=== PATIENT | male | born 1985 ===

== ENCOUNTER 2024-11-12 20:45 | Emergency (ER) | payer OTHER, SELFPAY ==
--- NOTE | ~2024-11-12 | US_ITS ---
TESTICULAR ULTRASOUND (Doppler ultrasound interrogation techniques used as needed for this exam.) Ordering provider: Nika Song MD History: . R testicular pain, r/o torsion . Comparison: None. FINDINGS: TESTICLES: Normal in size. The right measures 2.9x 2.1x 3.6 cm and the left measures 2.7x 2.4 x 3.2 C m. Normal echogenicity bilaterally without mass lesion. Normal Doppler flow bilaterally. EPIDIDYMIDES: Normal in size. Normal echogenicity bilaterally. Both demonstrate normal Doppler flow. HYDROCELE: None. VARICOCELE: None. OTHER ABNORMALITY: None seen. IMPRESSION: normal testicular ultrasound. Reviewed, dictated and finalized at location A.
--- NOTE | ~2024-11-12 | CT_ITS ---
CLINICAL INDICATION: Right lower quadrant pain COMPARISON: None. TECHNIQUE: Multiple contiguous axial images of the abdomen and pelvis were performed following the ad ministration of with 100 mL Omnipaque-350 intravenous contrast The dose-length product (DLP) was 686.55 mGy-cm. Automated exposure control and iterative reconstruction technique were employed. FINDINGS/OBSERVATIONS: Visualized lower thorax: The bilateral lung bases are clear. The heart is of normal size, without pericardial effusion. Liver: The liver demonstrates homogeneous enhancement and is not enlarged. Gallbladder and biliary system: The gallbladder is only minimally distended, and otherwise unremarkable. Pancreas: The pancreas enhances homogeneously without ductal dilatation. Spleen: The spleen enhances homogeneously and is not enlarged measuring 8 cm in longitudinal dimension. Kidneys: The bilateral kidneys enhance symmetrically without hydronephrosis or renal calculi. Adrenal glands: Unremarkable. Gastrointestinal tract: Mural thickening and edema is identified within the transverse colon, with surrounding inflammatory c hange, findings suggesting a focal enteritis for which clinical correlation is needed. Appendix: The air-filled appendix is of normal caliber (axial series, images 107 through 139). Vasculature: Unremarkable. Lymph nodes: No pathologically enlarged or morphologically suspicious lymph nodes within the retroperitoneum or at the root of the mesentery. Pelvic structures: The bladder is decompressed, limiting its evaluation. The prostate gland is not enlarged. Body wall and musculoskeletal: No significant degenerative disease within the lower thoracic or lumbosacral spine. IMPRESSION: Findings within the transverse colon suggesting a diffuse enteritis. Normal appendix. Reviewed, dictated and finalized at location A.
[2024-11-12 20:52] VITALS: BP 133/82; PULSE 65; RESP 19; TEMP 36.6; O2SAT 99
[2024-11-12 21:31] VITALS: PULSE 64; RESP 16; O2SAT 100
[2024-11-12 21:34] VITALS: BP 135/86; PULSE 64; RESP 15; O2SAT 99
[2024-11-12 21:36] LABS: Basophils Absolute Auto 0.1 K/mm3 (0.0-0.1); Basophils Percent Auto 0.4 % (0.2-1.2); Eosinophils Absolute Auto 0.1 K/mm3 (0-0.3); Eosinophils Percent Auto 0.6 % (0-4.4); Hematocrit 44.8 % (42.0-52.0); Hemoglobin 15.2 g/dL (14.0-18.0); Immature Granulocyte Absolute 0.08 K/mm3 (0.00-0.031); Immature Granulocyte Percent A 0.5 % (0-0.5); Lymphocytes Percent Auto 14.5 % (18.3-44.2); Mean Corpuscular HGB Conc 33.9 g/dl (32-36); Mean Corpuscular Hemoglobin 28.3 pg (26-34); Mean Corpuscular Volume 83.4 fl (80-100); Monocytes Percent Auto 6.3 % (2.6-8.5); Neutrophils Absolute Auto 12.3 K/mm3 (1.3-6.7); Neutrophils Percent Auto 77.7 % (45.5-73.1); Platelet Count Result 326 k/mm3 (150-375); Red Blood Count 5.37 M/mm3 (4.6-6.20); Red Cell Distribution Width 12.5 % (11.5-14.5); White Blood Count 15.9 K/mm3 (4.5-10.0)
[2024-11-12 21:45] VITALS: PULSE 69; RESP 19
[2024-11-12 21:46] LABS: Alanine Aminotransferase 63 U/L (6-50); Albumin Level 4.7 g/dL (3.5-5.1); Alkaline Phosphatase 81 U/L (38-126); Anion Gap 11 mmol/L (4-12); Aspartate Amino Transferase 46 U/L (17-59); Bilirubin,Total 0.6 mg/dL (0.2-1.3); Blood Urea Nitrogen 20 mg/dL (9-20); Calcium 9.3 mg/dL (8.4-10.2); Carbon Dioxide 23 mmol/L (22-30); Chloride 105 mmol/L (98-107); Estimated CRCL calculation 93 ml/min; Estimated Glomerular Filt Rate > 60; Glucose 134 mg/dL (65-110); Lipase 69 U/L (23-300); Potassium 4.1 mmol/L (3.4-5.0); Sodium 139 mmol/L (137-145)
[2024-11-12] MEDS: MORPHINE SULFATE (*CRX) 4 MG/ML INJ IV PUSH (22:23)
[2024-11-12] MEDS: ONDANSETRON INJ 4 MG/2 ML VIAL IV PUSH (22:24)
--- NOTE | 2024-11-12 22:25 | ED.ABDPAIN ---
HPI - Abdominal Pain General Chief Complaint: Abdominal Pain Stated Complaint: abd pain Time Seen by Provider: 11/12/24 21:24 History of Present Illness HPI narrative: Patient presenting with right lower quadrant pain, with nausea vomiting, comes in waves, has never happened in the past, with nausea vomiting. First started about 2-3 hours ago but has been increasing pain. Related Data Allergies Allergy/AdvReac Type Severity Reaction Status Date / Time fish derived Allergy SWELLING Verified 11/12/24 20:55 OF THE THROAT Review of Systems Review of Systems: All systems reviewed & are unremarkable except as noted in HPI and below [facility] Family History Family History (Updated 01/24/16 @ 23:19 by DOCTOR UNKNOWN) Father Family history of diabetes mellitus in first degree relative Social History Social History Alcohol intake: current Exam Narrative: EXAMINATION OF ORGAN SYSTEMS/BODY AREAS: Constitutional: Vital signs per nursing GENERAL: Appears incredibly uncomfortable, bent over, dry heaving, moaning in pain HEAD: Normal with no signs of head trauma. EYES: EOMI, conjunctiva normal ENT: Hearing grossly intact LUNGS: Nonlabored breathing. HEART: [Regular rate and rhythm] ABD: [Soft], [nontender to palpation], no significant right lower quadrant tenderness : Cremaster reflex intact, no significant tenderness to the right testicle though it is slightly high EXT: Normal range of motion SKIN: [No rashes or lesions.] NEURO: [Alert and oriented x 3. No gross focal sensory or strength deficits.] PSYCH: Normal affect Course Vital Signs Vital signs: Vital Signs Temperature 97.8 F 11/12/24 20:52 Pulse Rate 65 11/12/24 20:52 Respiratory Rate 19 11/12/24 20:52 Blood Pressure 133/82 11/12/24 20:52 Pulse Oximetry 99 11/12/24 20:52 Oxygen Delivery Room Air 11/12/24 20:52 Temperature 98.7 F 11/13/24 01:23 Pulse Rate 71 11/13/24 01:23 Respiratory Rate 18 11/13/24 01:23 Blood Pressure 134/87 11/13/24 01:23 Pulse Oximetry 97 11/13/24 01:23 Oxygen Delivery Room Air 11/12/24 20:52 MDM - Abdominal Pain MDM Narrative Medical decision making narrative: ED COURSE AND MEDICAL DECISION MAKIN-year-old male presenting to the emergency department for acute flank pain, symptoms are concerning for likely renal colic versus pyelonephritis. I did also testicular torsion and appendicitis. Urinalysis is ordered. [Morphine 4 mg, Zofran 4mg] are ordered. CT scan of the abdomen/pelvis is ordered. Labs are remarkable for: Blood in urine. CT scan of the abdomen/pelvis is independently interpreted by myself showing for 4 mm stone at UVJ on the right with hydroureter/hydronephrosis, no obvious signs of acute appendicitis. Testicular ultrasound on my independent interpretation shows good flow to bilateral testicles On re-evaluation patient is still having severe pain, I did give 15 mg Toradol On reevaluation, the patient states that pain is resolved, he appears more comfortable. Patient is strongly advised to return to the emergency department for any increasing pain not improving with medications, persistent nausea vomiting, fevers or chills or for any other concerns. Patient is comfortable with this plan and was discharged in fair condition. Follow-up to urologist provided. Lab Data 11/12/24 21:26 11/12/24 21:26 Labs: Lab Results 11/12/24 11/12/24 Range/Units 21:26 22:27 WBC 15.9 H (4.5-10.0) K/mm3 RBC 5.37 (4.6-6.20) M/mm3 Hgb 15.2 (14.0-18.0) g/dL Hct 44.8 (42.0-52.0) % MCV 83.4 (80-100) fl MCH 28.3 (26-34) pg MCHC 33.9 (32-36) g/dl RDW 12.5 (11.5-14.5) % Plt Count 326 (150-375) k/mm3 MPV 10.0 (7.4-10.4) fl Immature Gran % (Auto) 0.5 (0-0.5) % Neut % (Auto) 77.7 H (45.5-73.1) % Lymph % (Auto) 14.5 L (18.3-44.2) % Evans % (Auto) 6.3 (2.6-8.5) % Eos % (Auto) 0.6 (0-4.4) % Baso % (Auto) 0.4 (0.2-1.2) % Lymph # (Auto) 2.30 (0.9-3.2) K/mm3 Evans # (Auto) 1.0 H (0.1-0.6) K/mm3 Eos # (Auto) 0.1 (0-0.3) K/mm3 Baso # (Auto) 0.1 (0.0-0.1) K/mm3 Abs Immat Gran (auto) 0.08 H (0.00-0.031) K/mm3 Absolute Neuts (auto) 12.3 H (1.3-6.7) K/mm3 Absolute Nucleated RBC 0.000 (0.0-0.012) K/mm3 Nucleated RBC % 0.0 (0.0-0.2) % Sodium 139 (137-145) mmol/L Potassium 4.1 (3.4-5.0) mmol/L Chloride 105 (98-107) mmol/L Carbon Dioxide 23 (22-30) mmol/L Anion Gap 11 (4-12) mmol/L BUN 20 (9-20) mg/dL Creatinine 1.05 (0.7-1.3) mg/dL Estim Creat Clear Calc 93 ml/min Estimated GFR > 60 (59 - ) Glucose 134 H (65-110) mg/dL Calcium 9.3 (8.4-10.2) mg/dL Total Bilirubin 0.6 (0.2-1.3) mg/dL AST 46 (17-59) U/L ALT 63 H (6-50) U/L Alkaline Phosphatase 81 (38-126) U/L Total Protein 8.0 (6.3-8.2) g/dL Albumin 4.7 (3.5-5.1) g/dL Lipase 69 (23-300) U/L Urine Color Yellow (Yellow) Urine Appearance Clear (Clear) Urine pH 5.5 (5.0-9.0) Ur Specific [place] 1.025 (1.001-1.035) Urine Protein Negative (Negative) mg/dL Urine Glucose (UA) Negative (Negative) mg/dL Urine Ketones Trace H (Negative) mg/dL Ur Blood (Man) 2+ H (Negative) Urine Nitrate Negative (Negative) Urine Bilirubin Negative (Negative) Urine Urobilinogen 0.2 (<2.0) mg/dL Leukocyte Esterase Rfl Negative (Negative) REBECA/UL Urine RBC 21-50 H (0-2) /hpf Urine WBC 0-5 (0-3) /hpf Ur Squamous Epith Cells None seen (Few) /hpf Urine Bacteria None seen /hpf Urine Casts 0-2 Imaging Data Radiologist's impression: ITS Impressions Abdomen/Pelvis CT 11/12/24 22:46 IMPRESSION: Findings within the transverse colon suggesting a diffuse enteritis. Normal appendix. Discharge Plan Discharge Clinical Impression: Kidney stone Patient Disposition: Home Condition: Stable Instructions: Kidney Stones (ED) Additional Instructions: Take the medications as prescribed, if your pain returns or worsens, come back to the hospital. Follow-up with a urologist make sure to keep hydrated. Patient Language: Luxembourgish Prescriptions: New ketorolac 10 mg tablet 10 mg PO Q6H PRN (Reason: pain) Qty: 20 0RF Rx Instructions: maximum total duration of 5 days from all oral, intranasal, or parenteral formulations ondansetron 4 mg tablet,disintegrating 4 mg PO Q8H PRN (Reason: nausea and vomiting) Qty: 20 0RF tamsulosin [Flomax] 0.4 mg capsule 0.4 mg PO DAILY Qty: 14 0RF Follow-up/Referrals: Nicolas Bowers MD [Physician] - 2 Days Liam Smith MD [Primary Care Provider] -
[2024-11-12 22:43] LABS: Add Urine Microscopic? YES; Appearance Urine Clear (Clear); Bacteria Urine None Seen /hpf; Bilirubin Urine Negative (Negative); Blood Urine 2+ (Negative); Color Urine Yellow (Yellow); Glucose Urine UA Negative (Negative); Ketones Urine Trace mg/dL (Negative); Leukocyte Esterase Ur Negative LEU/UL (Negative); Nitrate Urine Negative (Negative); Non Pathogenic Casts 0-2; Protein Urine Negative (Negative); RBC Urine 21-50 /hpf (0-2); Specific Grav Ur 1.025 (1.001-1.035); Squamous Epithelial Cell Urine None Seen /hpf (Few); Urobilinogen Urine 0.2 mg/dL (<2.0); WBC Urine 0-5 /hpf (0-3); pH Urine 5.5 (5.0-9.0)
--- NOTE | 2024-11-12 23:45 | PC.NURSE ---
Pt removed vitals and is currently pacing the room in pain .
[2024-11-12] MEDS: KETOROLAC 15 MG/ML VIAL (*BKC) IV PUSH (23:54)
[2024-11-13 01:07] VITALS: BP 134/87; PULSE 65; RESP 18; TEMP 37.1; O2SAT 98
[2024-11-13 01:23] VITALS: BP 134/87; PULSE 71; RESP 18; TEMP 37.1; O2SAT 97
== END 2024-11-13 01:08 | disposition home or self-care (01) ==
PROVIDERS: Emergency Provider Emergency Medicine; PCP Family Medicine
DX: N20.0 Calculus of kidney (principal); N50.811 Right testicular pain
CPT/HCPCS: 36415; 74177; 76870; 80053; 81001; 83690; 85025; 93976; 96374; 96375; 99284; J1885; J2270; J2405; Q9967